=== PATIENT | female | born 1980 ===

== ENCOUNTER 2018-08-03 17:52 | Emergency (ER) | payer OTHER, SELFPAY ==
[2018-08-03 17:55] VITALS: BP 120/75; PULSE 69; RESP 20; TEMP 36.8; O2SAT 97; BMI 31.4
--- NOTE | 2018-08-03 19:47 | ED.URI ---
HPI - URI/Sore Throat General Chief Complaint: Upper Respiratory Symptoms Stated Complaint: THINKS STREP THROAT Time Seen by Provider: 08/03/18 19:41 Source: patient Mode of arrival: ambulatory Limitations: no limitations History of Present Illness HPI Narrative: Patient is a 37-year-old female here for multiple upper respiratory infection type complaints. She states that she has had a dry cough for the past month. Has had a sore throat for the past couple days also postnasal drip no fevers. Does have your pain. Has tried Tessalon Perles without much improvement. Think she has strep throat. Related Data Previous Rx's Medication Instructions Recorded codeine-guaifenesin [Guaifenesin 10 ml PO Q4-6H PRN #118 ml 08/03/18 AC] Allergies Allergy/AdvReac Type Severity Reaction Status Date / Time citalopram Allergy Verified 08/03/18 18:00 Penicillins Allergy Verified 08/03/18 18:00 Review of Systems Constitutional Reports chills, Reports fever(s), Denies headache(s), Denies malaise and Denies weakness ENT Ears, Nose, Mouth, and Throat: Denies dental pain, Denies dysphagia, Denies vertigo, Denies dizziness, Denies headache(s), Reports sinus pressure, Reports sore throat and Denies tongue swelling Cardiovascular Denies chest pain and Denies dyspnea Respiratory Reports cough and Denies dyspnea Gastrointestinal Gastrointestinal: Denies dysphagia Musculoskeletal Denies myalgias and Denies arthralgias Integumentary/Breasts Denies rash Neurologic Denies vertigo, Denies dizziness, Denies headache(s) and Denies weakness Hematologic/Lymphatic Denies easy bleeding Allergic/Immunologic Denies tongue swelling PFSH Medical History Healthy adult (Acute) Surgical History No pertinent past surgical history (Acute) Social History Smoking Status: Never smoker Exam Initial Vital Signs Initial Vital Signs: Vital Signs Temperature 98.3 F 08/03/18 17:55 Pulse Rate 69 08/03/18 17:55 Respiratory Rate 20 08/03/18 17:55 Blood Pressure 120/75 08/03/18 17:55 Pulse Oximetry 97 08/03/18 17:55 Const General: cooperative, healthy appearing, comfortable, well developed, well groomed and No acute distress Orientation: alert, awake and oriented x3 HENMT Head: normal to inspection and normocephalic Ears: other (Tympanic membranes bulging bilaterally without erythema) Nose: external nose normal Face and sinus: normal facial exam Mouth: oral mucosae normal Teeth and gingiva: dentition normal Throat: posterior oropharynx normal Neck Lymphatic: No lymphadenopathy Resp Effort & Inspection: normal respiratory effort Auscultation: clear to auscultation bilaterally Cardio Rate: regular rate Rhythm: regular rhythm Skin Lesions: no lesions Rashes: no rashes Neuro General: alert, awake and oriented x3 Extrem General: normal to inspection and capillary refill normal Psych Appearance: grossly normal and well kempt Course Orders Ordered: ED Orders 08/03/18 20:11 Throat Culture Stat Vital Signs - 8 hr 08/03/18 17:55 08/03/18 19:55 Temperature 98.3 F Pulse Rate 69 66 Respiratory Rate 20 15 Blood Pressure 120/75 Blood Pressure [Right Arm] 112/64 Pulse Oximetry 97 100 MDM - URI/Sore Throat Lab Data Point of Care Testing Rapid Strep A Negative MDM Narrative Medical decision making narrative: Patient strep test was negative. Physical exam is not consistent with strep pharyngitis. A throat culture was obtained. Patient was informed that she would be called for any positive results. Will hold on any antibiotics for now. We did discuss the use of decongestants such as Claritin or Dianne or Zyrtec. She states she has these medications at home. Will send home with Mitul with codeine for the cough. Patient was given return precautions. She expressed understanding and agreement plan Discharge Plan Departure Patient Disposition: Home Clinical Impression: Pharyngitis, Upper respiratory infection Discharge Date/Time: 08/03/18 20:19 Interventions: ED Discharge Assessment Last Done: 08/03/18 20:19 Instructions: Sore Throat Activity Restrictions/Additional Instructions: Recommend that you take the decongestant like we discussed. We will call if the throat culture is positive. Take the medication as directed. Return to the emergency department for any new or worsening symptoms Prescriptions: New codeine-guaifenesin [Guaifenesin AC] 10-100 mg/5 mL liquid 10 ml PO Q4-6H PRN (Reason: cough) Qty: 118 RF: 0
[2018-08-03 19:55] VITALS: BP 112/64; PULSE 66; RESP 15; O2SAT 100
== END 2018-08-03 20:19 | disposition home or self-care (01) ==
PROVIDERS: Emergency Provider Emergency Medicine
DX: J02.9 Acute pharyngitis, unspecified (principal); J06.9 Acute upper respiratory infection, unspecified
CPT/HCPCS: 87070; 87077; 87880; 99282